=== PATIENT | male | born 1995 | race African-American/Black ===

== ENCOUNTER 2021-09-06 14:09 | Emergency (ER) | payer SELFPAY ==
[2021-09-06] MEDS ORDERED: Acetaminophen/oxyCODONE 325-5 MG Tab PO ONE (15:14)
[2021-09-06] MEDS ORDERED: cefTRIAXone 500 MG in Lidocaine 1% 1 ML IM ONE (15:14)
[2021-09-06] MEDS ORDERED: Azithromycin 250 MG Tab PO STA (15:14)
[2021-09-06 17:47] LABS: C. TRACHOMATIS BY PCR NOT DETECTED; N. GONORRHOEAE BY PCR NOT DETECTED
== END 2021-09-06 16:24 | disposition home or self-care (01) ==
LOC: MW.ED 14:09
DX: K08.109 Complete loss of teeth, unspecified cause, unspecified class (principal); Z11.3 Encounter for screening for infections with a predominantly sexual mode of transmission; Z79.899 Other long term (current) drug therapy
CPT/HCPCS: 87491; 87591; 96372; 99283; A9270; J0696